=== PATIENT | female | born 1935 | race Caucasian/White ===

== ENCOUNTER → 2017-03-09 | Outpatient (CLI) | payer MEDICARE, BC ==
[~2017-03-09] MED LIST: AL-MAG HYDROX-S30 M1 PO; ALENDRONATE SOD70 MG PO; AMLODIPINE BESY10 MG PO; ASA-CA CARB-MA325 MG PO; ASPIRIN81 M1 PO; CAL MAG ZINC +1 EAC1 PO; FOSAMAX70 MG PO; HYDROCODON-ACE1 EAC7 PO; LISINOPRIL-HCTZ1 T14 PO; MONTELUKAST SOD10 MG PO; NORVASC10 MG PO; PANTOPRAZOLE SO40 MG PO; PROTONIX PO; SIMVASTATIN20 MG PO; ULTRACET TABLE1 EACH PO; ZAFIRLUKAST20 MG PO; ZESTORETIC 20/11 TAB PO; ZOCOR20 MG PO; ZOFRAN PO
[2017-03-09 09:29] LABS: CALCIUM SERUM 9.7 mg/dL (8.4-10.2); CREATININE SERUM 0.7 mg/dL (0.6-1.4); GLOM FILT RATE Estimated 81.3 mL/min (>60)
== END | disposition home or self-care (01) ==
LOC: CSSDAY 08:29
PROVIDERS: Internal Medicine
DX: M81.0 Age-related osteoporosis without current pathological fracture (principal)
CPT/HCPCS: 36415; 82310; 82565; 96374; J3489